=== PATIENT | male | born 1990 | race African-American/Black ===

== ENCOUNTER 2019-06-13 13:39 | Emergency (ER) | payer SELFPAY ==
[~2019-06-13] VITALS: Ht 177.8 cm; Wt 78.0 kg
[2019-06-13] MEDS ORDERED: KETOROLAC 30MG/ML VIAL IM ONE (16:45)
[2019-06-13] MEDS ORDERED: DEXAMETHASONE 4MG/ML 1ML VIAL IM SCH (16:45)
[2019-06-13 16:51] VITALS: BP 120/81
== END 2019-06-13 18:00 | disposition home or self-care (01) ==
LOC: ER 13:39
DX: J02.0 Streptococcal pharyngitis (principal)
CPT/HCPCS: 87430; 96372; 99283; J1100; J1885